=== PATIENT | female | born 1990 | race Caucasian/White ===

== ENCOUNTER 2020-08-19 10:50 | Inpatient (IN) | payer OTHER, SELFPAY ==
[2020-08-19] VITALS (39 sets, daily range): BP systolic 69–126; BP diastolic 47–83; PULSE 66–126; RESP 16; TEMP 36–37; O2SAT 97–99
[2020-08-19] MEDS: Lactated Ringers 1,000 ML 500 ML IV (09:05)
[2020-08-19] MEDS: HYDROmorphone 0.5 MG/0.5 ML SYRINGE IV (09:35)
[2020-08-19] MEDS: Methylergonovine 0.2 MG/ML Ampul IM (09:37)
[2020-08-19] MEDS: miSOPROStol 200 MCG Tablet 800 MCG RC (09:45)
--- NOTE | 2020-08-19 10:00 | HP.PCM.OB_ITS ---
HPI - General General Date of Admission: 08/19/20 HPI Narrative HUNTER KILLIAN, is a 30 F BIB EMS following extramural delivery with c/o heavy bleeding. She had a home at approximately 0600h after 3 hours of labor. She is Rh negative and received Rhogam. [facility] Medical History (Updated 08/19/20 @ 23:[address] Marcelle Talley MD) Patient denies significant medical history Allergy/AdvReac Type Severity Reaction Status Date / Time No Known Allergies Allergy Verified 08/19/20 09:37 Surgical History (Updated 08/19/20 @ 23:[address] Marcelle Talley MD) No history of previous surgery Vital Signs Vital Signs Vital Signs: 08/19/20 09:00 08/19/20 09:01 08/19/20 09:15 Temperature 98.6 F 98.6 F Temperature Source Temporal Temporal Pulse Rate 86 86 85 Respiratory Rate Blood Pressure 120/74 120/74 109/75 Blood Pressure [BP] Blood Pressure Mean Blood Pressure Mean [BP] BP Systolic 120 120 109 BP Diastolic 74 74 75 Blood Pressure Source Blood Pressure Source [BP] Blood Pressure Position Blood Pressure Position [BP] Blood Pressure Location Blood Pressure Location [BP] Pulse Ox 97 Oxygen Delivery Method 08/19/20 09:48 08/19/20 09:57 08/19/20 10:11 Temperature Temperature Source Pulse Rate 66 66 68 Respiratory Rate Blood Pressure 104/72 115/78 120/83 H Blood Pressure [BP] Blood Pressure Mean Blood Pressure Mean [BP] BP Systolic 104 115 120 BP Diastolic 72 78 83 Blood Pressure Source Blood Pressure Source [BP] Blood Pressure Position Blood Pressure Position [BP] Blood Pressure Location Blood Pressure Location [BP] Pulse Ox 99 Oxygen Delivery Method 08/19/20 10:20 08/19/20 10:26 08/19/20 10:41 Temperature 98.0 F Temperature Source Temporal Pulse Rate 68 67 68 Respiratory Rate Blood Pressure 120/83 H 126/83 H 120/82 H Blood Pressure [BP] Blood Pressure Mean Blood Pressure Mean [BP] BP Systolic 120 126 120 BP Diastolic 83 83 82 Blood Pressure Source Blood Pressure Source [BP] Blood Pressure Position Blood Pressure Position [BP] Blood Pressure Location Blood Pressure Location [BP] Pulse Ox Oxygen Delivery Method 08/19/20 10:56 08/19/20 11:11 08/19/20 11:26 Temperature Temperature Source Pulse Rate 71 72 73 Respiratory Rate Blood Pressure 117/81 H 114/78 113/75 Blood Pressure [BP] Blood Pressure Mean Blood Pressure Mean [BP] BP Systolic 117 114 113 BP Diastolic 81 78 75 Blood Pressure Source Blood Pressure Source [BP] Blood Pressure Position Blood Pressure Position [BP] Blood Pressure Location Blood Pressure Location [BP] Pulse Ox Oxygen Delivery Method 08/19/20 13:22 08/19/20 14:58 08/19/20 15:00 Temperature Temperature Source Pulse Rate 88 76 91 Respiratory Rate Blood Pressure 100/58 L 110/67 108/67 Blood Pressure [BP] Blood Pressure Mean Blood Pressure Mean [BP] BP Systolic 100 110 108 BP Diastolic 58 67 67 Blood Pressure Source Blood Pressure Source [BP] Blood Pressure Position Blood Pressure Position [BP] Blood Pressure Location Blood Pressure Location [BP] Pulse Ox Oxygen Delivery Method 08/19/20 15:01 08/19/20 19:29 08/19/20 19:43 Temperature 98.6 F 97.5 F L Temperature Source Temporal Temporal Pulse Rate 126 H 75 75 Respiratory Rate 16 Blood Pressure 79/51 L 99/55 L Blood Pressure [BP] 99/55 L Blood Pressure Mean Blood Pressure Mean [BP] 69 BP Systolic 79 99 BP Diastolic 51 55 Blood Pressure Source Blood Pressure Source [BP] Monitor Blood Pressure Position Blood Pressure Position [BP] Left Lateral Blood Pressure Location Blood Pressure Location [BP] Right Arm Pulse Ox 97 Oxygen Delivery Method Room Air 08/19/20 21:56 08/19/20 21:58 08/19/20 22:03 Temperature Temperature Source Pulse Rate 94 125 H 77 Respiratory Rate Blood Pressure 102/65 69/50 L 103/51 L Blood Pressure [BP] Blood Pressure Mean Blood Pressure Mean [BP] BP Systolic 102 69 103 BP Diastolic 65 50 51 Blood Pressure Source Blood Pressure Source [BP] Blood Pressure Position Blood Pressure Position [BP] Blood Pressure Location Blood Pressure Location [BP] Pulse Ox Oxygen Delivery Method 08/19/20 22:54 08/19/20 22:55 Temperature 96.8 F L Temperature Source Temporal Pulse Rate 85 82 Respiratory Rate 16 Blood Pressure 92/57 L Blood Pressure [BP] Blood Pressure Mean 68 Blood Pressure Mean [BP] BP Systolic 92 BP Diastolic 57 Blood Pressure Source Monitor Blood Pressure Source [BP] Blood Pressure Position Right Lateral Blood Pressure Position [BP] Blood Pressure Location Left Arm Blood Pressure Location [BP] Pulse Ox 99 99 Oxygen Delivery Method Room Air Weight Weight: 54.431 kg Body Mass Index (BMI) 20.0 Physical Exam Const alert, oriented x3 and no apparent distress HEENT normocephalic Resp normal respiratory effort, normal air movement and clear to auscultation bilaterally Cardio regular rate and regular rhythm GI normal to inspection, nondistended, normoactive bowel sounds, soft to palpation, non-tender and non-distended Narrative: Fundus soft, nontender at 1 FW below umbilicus Labs Labs Labs: Blood Type AB NEGATIVE Antibody Screen NEGATIVE Hct 25.9 % (37-47) L Hgb 9.1 g/dL (12.0-15.0) L Assessment & Plan (1) hemorrhage: QUALIFIERS: hemorrhage type: other immediate Qualified Code(s): O72.1 - Other immediate hemorrhage PLAN: Hemodynamically stable Coags wnl Intrauterine exam performed with abundant clots and few membranes retrieved. Gauze curettage performed with no further tissue retrieval. The fundus was firm at 3 FW below umbilicus after this time. Misoprostol and IM Methergine given (2) Anemia: QUALIFIERS: Other causes of anemia: acute posthemorrhagic Anemia type: other cause Qualified Code(s): D62 - Acute posthemorrhagic anemia PLAN: Repeat CBC later today
[2020-08-19 10:28] LABS: International Normalized Ratio 1.1; Prothrombin Time (Protime)PT. 13.5 SECONDS (11.7-14.9)
[2020-08-19 10:29] LABS: Partial Thromboplast Time 27.5 Seconds (24.1-36.2)
[2020-08-19] MEDS: Lactated Ringers 1,000 ML 200 ML IV (11:05)
[2020-08-19 11:28] LABS: Absolute Lymphocyte Count 1.09 X10^3/uL (0.83-4.51); Absolute Neutrophil Count 10.1 X10^3/uL (2.0-7.7); Basophil# 0.02 X10^3/uL; Basophil% 0.2 % (0-1); Eosinophil# 0.01 X10^3/uL; Eosinophils% 0.1 % (0-5); Hematocrit 31.5 % (37-47); Hemoglobin 10.8 g/dL (12.0-15.0); Lymphocyte # 1.09 X10^3/ul (0.83-4.51); Lymphocyte % 9.1 % (19-41); Mean Corp Hgb Conc 34.3 g/dL (32-36); Mean Corpuscular Volume 96.3 fL (81-99); Mean Platelet Vol. 10.3 fl (6.2-12.0); Monocyte# 0.74 X10^3/uL; Monocyte% 6.2 % (0-10); NRBC Flagged by Analyzer 0 % (0-5); Neutrophil # 10.07 X10^3/uL (2.7-7.7); Platelet Count 164 K/mm3 (150-450); RBC Distribution Width CV 12.8 % (11.6-14.6); RBC Distribution Width SD 44.7 fl (35.1-43.9); Red Blood Count 3.27 M/mm3 (4.2-5.4)
--- NOTE | 2020-08-19 18:29 | NURSING ---
vitals recorded in qs.
--- NOTE | 2020-08-19 18:33 | NURSING ---
pt tolerating movements well, color improving, eating well, nurses baby with little assist. pain 2, bleeding scant, voiding well. IV to S.L. Repeat labs at 1930. pt and state understanding of plan of care.
[2020-08-19 20:10] LABS: Absolute Lymphocyte Count 1.57 X10^3/uL (0.83-4.51); Absolute Neutrophil Count 7.7 X10^3/uL (2.0-7.7); Basophil# 0.01 X10^3/uL; Basophil% 0.1 % (0-1); Eosinophil# 0.01 X10^3/uL; Eosinophils% 0.1 % (0-5); Hematocrit 26.1 % (37-47); Lymphocyte # 1.57 X10^3/ul (0.83-4.51); Lymphocyte % 15.6 % (19-41); Mean Corp Hgb Conc 34.5 g/dL (32-36); Mean Corpuscular Hgb 33.6 pg (27.0-32.0); Mean Corpuscular Volume 97.4 fL (81-99); Mean Platelet Vol. 10.3 fl (6.2-12.0); Monocyte# 0.75 X10^3/uL; Monocyte% 7.4 % (0-10); NRBC Flagged by Analyzer 0 % (0-5); Neutrophil # 7.71 X10^3/uL (2.7-7.7); Neutrophil % 76.4 % (47-70); Platelet Count 138 K/mm3 (150-450); RBC Distribution Width CV 12.8 % (11.6-14.6); RBC Distribution Width SD 44.1 fl (35.1-43.9); Red Blood Count 2.68 M/mm3 (4.2-5.4); White Blood Count 10.1 K/mm3 (4.4-11.0)
--- NOTE | 2020-08-19 22:05 | NURSING ---
Patient ambulated to bathroom independently with 's assistance. called RN to report patient passed out in bathroom and helped her back to bed. RN checked BP while patient sitting- 102/65 and standing 69/50 and HR 125. RN called Dr. Christy Talley to report patient passed out and VS. Ordered CBC now and give 1 unit prbcs.
[2020-08-19 22:34] LABS: Absolute Lymphocyte Count 1.89 X10^3/uL (0.83-4.51); Basophil# 0.02 X10^3/uL; Basophil% 0.2 % (0-1); Eosinophil# 0.01 X10^3/uL; Eosinophils% 0.1 % (0-5); Hematocrit 25.9 % (37-47); Hemoglobin 9.1 g/dL (12.0-15.0); Lymphocyte # 1.89 X10^3/ul (0.83-4.51); Lymphocyte % 19.2 % (19-41); Mean Corp Hgb Conc 35.1 g/dL (32-36); Mean Corpuscular Hgb 35.4 pg (27.0-32.0); Mean Corpuscular Volume 100.8 fL (81-99); Mean Platelet Vol. 9.8 fl (6.2-12.0); Monocyte# 0.91 X10^3/uL; Monocyte% 9.2 % (0-10); NRBC Flagged by Analyzer 0 % (0-5); Platelet Count 135 K/mm3 (150-450); RBC Distribution Width CV 12.9 % (11.6-14.6); RBC Distribution Width SD 45.4 fl (35.1-43.9); Red Blood Count 2.57 M/mm3 (4.2-5.4); White Blood Count 9.9 K/mm3 (4.4-11.0)
[2020-08-20] VITALS (67 sets, daily range): BP systolic 85–125; BP diastolic 54–89; PULSE 63–98; RESP 15–16; TEMP 35.8–36.8; O2SAT 89–100
[2020-08-20 05:17] LABS: Hematocrit 31.7 % (37-47); Hemoglobin 11.2 g/dL (12.0-15.0); Mean Corp Hgb Conc 35.3 g/dL (32-36); Mean Corpuscular Hgb 32.7 pg (27.0-32.0); Mean Corpuscular Volume 92.7 fL (81-99); Mean Platelet Vol. 9.4 fl (6.2-12.0); Platelet Count 114 K/mm3 (150-450); RBC Distribution Width CV 13.9 % (11.6-14.6); RBC Distribution Width SD 46.9 fl (35.1-43.9); Red Blood Count 3.42 M/mm3 (4.2-5.4); White Blood Count 10.4 K/mm3 (4.4-11.0)
--- NOTE | 2020-08-20 07:39 | PN_ITS ---
Subjective Subjective Marlee reports doing well this morning. She is out of bed and ambulating without lightheadedness or heart racing. She reports her energy is much improved after her blood transfusion. Denies side effects. Objective Data Objective Data Vital Signs: Vital Signs Temp Pulse Resp BP Pulse Ox 97.6 F L 77 16 91/54 L 99 08/20/20 06:00 08/20/20 07:30 08/20/20 06:00 08/20/20 07:30 08/20/20 06:02 Oxygen Delivery Method Room Air Weight: 54.431 kg Body Mass Index (BMI) 20.0 Intake & Output: Intake and Output for Last 24 Hours 08/18/20 08/19/20 08/20/20 23:59 23:59 23:59 Intake Total 2000 / 2000 400 / 400 Output Total 1100 / 1100 Balance 900 / 900 400 / 400 Lab / Micro Data Result Diagrams: 08/20/20 05:10 Labs: Laboratory Results - last 24 hr 08/19/20 09:05: WBC 12.0 H, RBC 3.27 L, Hgb 10.8 L, Hct 31.5 L, MCV 96.3, MCH 33.0 H, MCHC 34.3, RDW Std Deviation 44.7 H, RDW Coeff of Mica 12.8, Plt Count 164, MPV 10.3, Immature Gran % (Auto) 0.400, Neut % (Auto) 84.0 H, Lymph % (Auto) 9.1 L, [place] % (Auto) 6.2, Eos % (Auto) 0.1, Baso % (Auto) 0.2, Absolute Neuts (auto) 10.1 H, Absolute Lymphs (auto) 1.09, Nucleated RBC % 0 08/19/20 09:05: PT 13.5, INR 1.1, APTT 27.5 08/19/20 09:05: Blood Type AB NEGATIVE, Antibody Screen NEGATIVE, Crossmatch See Detail 08/19/20 19:30: WBC 10.1, RBC 2.68 L, Hgb 9.0 L, Hct 26.1 L, MCV 97.4, MCH 33.6 H, MCHC 34.5, RDW Std Deviation 44.1 H, RDW Coeff of Mica 12.8, Plt Count 138 L, MPV 10.3, Immature Gran % (Auto) 0.400, Neut % (Auto) 76.4 H, Lymph % (Auto) 15. 6 L, [place] % (Auto) 7.4, Eos % (Auto) 0.1, Baso % (Auto) 0.1, Absolute Neuts (auto) 7.7, Absolute Lymphs (auto) 1.57, Nucleated RBC % 0 08/19/20 22:23: WBC 9.9, RBC 2.57 L, Hgb 9.1 L, Hct 25.9 L, MCV 100.8 H, MCH 35.4 H, MCHC 35.1, RDW Std Deviation 45.4 H, RDW Coeff of Mica 12.9, Plt Count 135 L, MPV 9.8, Immature Gran % (Auto) 0.300, Neut % (Auto) 71.0 H, Lymph % (Auto) 19.2, [place] % (Auto) 9.2, Eos % (Auto) 0.1, Baso % (Auto) 0.2, Absolute Neuts (auto) 7.0, Absolute Lymphs (auto) 1.89, Nucleated RBC % 0 08/20/20 05:10: WBC 10.4, RBC 3.42 L, Hgb 11.2 L, Hct 31.7 L, MCV 92.7 D, MCH 32.7 H, MCHC 35.3, RDW Std Deviation 46.9 H, RDW Coeff of Mica 13.9, Plt Count 114 L, MPV 9.4 Physical Exam Const alert, oriented x3 and no apparent distress Resp normal respiratory effort and normal air movement Cardio regular rate, regular rhythm, S1 normal heart sound and S2 normal heart sound Narrative: Fundus firm and nontender at U- 3, lochia moderate Extremity no calf tenderness and no pedal edema Neuro oriented x3 Assessment & Plan Assessment/Plan (1) Anemia: QUALIFIERS: Anemia type: other cause Other causes of anemia: acute posthemorrhagic Qualified Code(s): D62 - Acute posthemorrhagic anemia PLAN: Patient previously orthostatic and symptomatic, symptoms resolved Post 2 units of packed RBCs H&H improved immediately following transfusion (2) hemorrhage: QUALIFIERS: hemorrhage type: other immediate Qualified Code(s): O72.1 - Other immediate hemorrhage PLAN: No further bleeding Normal lochia Will plan for discharge to home
--- NOTE | 2020-08-20 07:47 | PCM.DC ---
Discharge Instructions Diet Discharge Diet: No restrictions Activity Discharge Activity: Return to Normal Activity May resume sexual activity in: 4-6 weeks Dressing / Incision Call your doctor if you observe: Fever of 101 or Higher, Using more than 1 pad per hour, Shortness of breath, Chest pain, Calf discomfort, Uncontrolled pain and - (Persistent or severe headache) Follow Up Care Please Follow Up With: Marcelle Talley MD When: as needed for any of the above symptoms Also follow up with your talent program manager this week. Test Results: Test results from this visit will be discussed in further detail at your follow-up appointment, if applicable. Discharge Plan Admission Admit Date/Time: 08/19/20 10:50 Primary Reason for Your Visit: Hemorrhage, Blood transfusion Attending Provider: Marcelle Franklin Instructions Patient Instructions: Iron Supplements, Hemorrhage Discharge Orders/Prescriptions Prescriptions: New ferrous sulfate 325 mg (65 mg iron) tablet 325 mg PO BID Qty: 60 RF: 1 Disposition Disposition (needs filled in before D/C Order can be placed): Home, Self Care
--- NOTE | 2020-08-22 16:24 | NURSING ---
no answer on follow up phone call left voicemail
== END 2020-08-20 10:45 | disposition home or self-care (01) | DRG 769 ==
LOC: WPOUT 08-21 11:37 → WP 08-21 11:38
PROVIDERS: Admitting Provider Obstetrics & Gynecology; Visit Provider Obstetrics & Gynecology
DX: O72.1 Other immediate postpartum hemorrhage (principal); D62 Acute posthemorrhagic anemia
CPT/HCPCS: 85025; 85027; 85610; 85730; 86850; 86900; 86901; 86920; 86922; 96372; J7120; P9016